=== PATIENT | female | born 2000 | race Caucasian/White ===

== ENCOUNTER 2023-12-30 13:09 | Emergency (ER) | payer SELFPAY ==
[~2023-12-30] VITALS: Ht 187.9 cm; Wt 71.2 kg
[2023-12-30] MEDS ORDERED: ZANAFLEX4 MG PO (15:50)
[2023-12-30] MEDS ORDERED: NAPROSYN500 MG PO (15:50)
== END 2023-12-30 16:02 | disposition home or self-care (01) ==
LOC: ED 13:09
DX: M79.631 Pain in right forearm (principal); Q76.49 Other congenital malformations of spine, not associated with scoliosis; X50.1XXA Overexertion from prolonged static or awkward postures, initial encounter; Y93.89 Activity, other specified; Y92.89 Other specified places as the place of occurrence of the external cause; Y99.8 Other external cause status